=== PATIENT | male | born 1995 | race Two or more races ===

== ENCOUNTER → 2021-08-27 | Outpatient (CLI) | payer OTHER ==
--- NOTE | 2021-08-27 12:04 | RAD ---
EXAM: Chest CT without intravenous contrast. HISTORY: Abnormal chest radiograph. Dysphagia. Chest pain. TECHNIQUE: Computed tomographic images of the chest were obtained without contrast. Multiplanar refor matting was performed. *One or more of the following individualized dose reduction techniques were utilized for this examina tion: 1. Automated exposure control. 2. Adjustment of the mA and/or kV according to patient size. 3. Use of iterative reconstruction technique. COMPARISON: None. FINDINGS: The heart is normal in size. The aorta is normal in caliber. There is no lymphadenopathy. T here is no pleural effusion or pneumothorax. There is bilateral lower lobe multifocal groundglass inf iltrate. There is linear atelectasis or scarring within the right middle lobe. There is no consolidat ion. There is no acute finding involving the upper abdomen. There is no acute or suspicious osseous f inding. IMPRESSION: Bilateral lower lobe multifocal groundglass infiltrate. Correlate for pneumonia/pneumoni tis. Electronically signed by: Lucia Gutierrez MD (08/27/2021 12:01 PM) [id number]
== END ==
LOC: CT 11:51
PROVIDERS: ATTEND Surgery
DX: R07.9 Chest pain, unspecified (principal); R68.81 Early satiety; R93.89 Abnormal findings on diagnostic imaging of other specified body structures; R13.19 Other dysphagia; R79.89 Other specified abnormal findings of blood chemistry
CPT/HCPCS: 71250